=== PATIENT | female | born 1940 | race Caucasian/White ===

== ENCOUNTER 2017-12-07 07:11 | Day surgery (SDC) | payer MEDICARE, BC, SELFPAY ==
[2017-12-07 07:21] VITALS: BP 151/77; PULSE 85; RESP 15; TEMP 36; O2SAT 96; BMI 22.6
[2017-12-07] MEDS: SODIUM CHLORIDE 0.9% 1,000 ML 42 ML IV (07:35)
--- NOTE | 2017-12-07 09:07 | PM.HP.1 ---
History of Present Illness Date Patient Seen: 12/07/17 Time Patient Seen: 09:08 Chief complaint: [id number] Narrative: History of colon polyps Patient History Family & Social History Social History: household members spouse Meds Home Medications Medication Instructions Recorded Confirmed Type No Known Home Medications 12/07/17 12/07/17 History Allergies Allergy/AdvReac Type Severity Reaction Status Date / Time aspirin Allergy Verified 12/07/17 07:34 Exam Vital Signs (past 8 hours): - 12/07/17 07:21 Temperature 96.8 F L Pulse Rate 85 Respiratory Rate 15 Blood Pressure 151/77 H Pulse Oximetry 96 Oxygen Delivery Method Room Air Narrative Exam Narrative: Chest clear to auscultation percussion Cardiac exam reveals no S3 or murmur Oropharynx free of lesions Assessment & Plan Plan: Assessment/Plan Narrative: Assessment History of colon polyps Plan Colonoscopy
--- NOTE | 2017-12-07 09:10 | P.HP_ITS ---
History of Present Illness Date Patient Seen: 12/07/17 Time Patient Seen: 09:08 Chief complaint: [id number] Narrative: History of colon polyps Patient History Family & Social History Social History: household members spouse Meds Home Medications Medication Instructions Recorded Confirmed Type No Known Home Medications 12/07/17 12/07/17 History Allergies Allergy/AdvReac Type Severity Reaction Status Date / Time aspirin Allergy Verified 12/07/17 07:34 Exam Vital Signs (past 8 hours): - 12/07/17 07:21 Temperature 96.8 F L Pulse Rate 85 Respiratory Rate 15 Blood Pressure 151/77 H Pulse Oximetry 96 Oxygen Delivery Method Room Air Narrative Exam Narrative: Chest clear to auscultation percussion Cardiac exam reveals no S3 or murmur Oropharynx free of lesions Assessment & Plan Plan: Assessment/Plan Narrative: Assessment History of colon polyps Plan Colonoscopy
--- NOTE | 2017-12-07 09:10 | PM.OP.ENDO ---
Operative Date/Time/Diagnoses Date of procedure: 12/07/17 Time of procedure: 09:10 Pre-op diagnosis: History of colon polyps Post-op diagnosis: same Procedure & Clinicians Study performed: Colonoscopy Same procedure as scheduled: Yes Indications: History of colon polyps Surgeon: Saray Robbins Procedure Notes Procedure in detail: After informed consent was obtained the patient was placed in left lateral decubitus position. The video colonoscope was introduced through the rectum and slowly advanced to the cecum. Preparation was excellent. On slow withdrawal mucosa was carefully examined. Scope was removed patient tolerated procedure well Blood loss none Complications none Medications Fentanyl 100 mcg Versed 4 mg IV titration Total sedation time 21 min Findings 1. 5 mm polyp in the mid-ascending colon Jumbo biopsy removed. Somehow specimen lost within the channel of the endoscope 2. For 3-4 mm polyp seen in the rectum. All were Jumbo biopsied and removed completely. Plan is to follow up on colon polyps pathology. This is very likely her last colonoscopy however. In excellent health and all the polyps are adenomatous might consider repeat colonoscopy in 5 years.
[2017-12-07 09:11] VITALS: BP 112/68; PULSE 62; RESP 16; TEMP 36.5; O2SAT 96
[2017-12-07] MEDS: MIDAZOLAM 5 MG/5 ML VIAL IV (09:13)
[2017-12-07] MEDS: fentaNYL 250 MCG/5 ML INJ IV (09:14)
[2017-12-07 09:17] VITALS: BP 117/54; PULSE 73; RESP 16; O2SAT 97
[2017-12-07 09:21] VITALS: BP 119/74; PULSE 68; RESP 16; O2SAT 96
[2017-12-07 09:29] VITALS: BP 131/74; PULSE 75; TEMP 36.1; O2SAT 99
--- NOTE | 2017-12-14 | PATH_ITS ---
[facility] Accession Number: [id number] . 01 Material submitted: . RECTAL POLYPS . 01 Clinical history: . A: X2 . 02 Diagnosis: Rectum, Polyps x2, Biopsies: Hyperplastic polyps. V/12/08/2017 . 02 Electronically signed: . Sana Piña MD, Pathologist NPI- [id number] . 01 Gross description: . Received in one formalin-filled container labeled with the patient's name and labeled rectal polyps x4, are four less than 0.1 cm to 0.3 cm portions of tissue, entirely submitted in one cassette. ([id number]) /FRR . 02 Pathologist provided ICD-10: K62.1 . 02 CPT . 730931 Performed at: 01 [facility] [address] [place] [address], [place], [place] [id number] MD Severo Almonte MD Phone: [phone] Performed at: 02 [facility] [address] [place], [place] [id number] MD Guy Hameed MD Phone: [phone]
== END 2017-12-07 09:40 | disposition home or self-care (01) ==
PROVIDERS: Family Provider Family Medicine; PCP Family Medicine; Visit Provider Internal Medicine Gastroenterology
PROC: 0DJD8ZZ Inspection of Lower Intestinal Tract, Via Natural or Artificial Opening Endoscopic (ICD-10-PCS; CPT 45378; principal; 2017-12-07 08:30)
DX: Z86.010 Personal history of colon polyps (principal); D12.2 Benign neoplasm of ascending colon; K62.1 Rectal polyp
CPT/HCPCS: 45380; 88305; J2250; J3010

== ENCOUNTER 2018-10-10 07:28 | Day surgery (SDC) | payer MEDICARE, BC, SELFPAY ==
[2018-10-10 08:10] VITALS: BP 159/78; PULSE 75; RESP 16; TEMP 36.4; O2SAT 100; BMI 22.1
[2018-10-10] MEDS: PROPARACAINE 0.5% OPHTH SOL 2 DROPS EYE-OP (08:10)
[2018-10-10] MEDS: CATARACT EYE COMPOUND (10 DROPS/SYRINGE) 3 DROPS EYE-OP (08:15)
--- NOTE | 2018-10-10 09:13 | PM.PREOP ---
Pre-operative Note Interval Note History & Physical reviewed/Exam performed by Physician: No Changes to H&P: No
--- NOTE | 2018-10-10 09:14 | PM.OP.1 ---
Operative Date/Time/Diagnoses Pre-op diagnosis: Nuclear cataract right eye Procedure & Clinicians Procedure: Cataract Surgery Same procedure as scheduled: Yes Surgeon: Sergio Rodriges Anesthesia Type: MAC +/- and Sedation Operative Notes Procedure in detail: Patient brought to the operating suite. Tetracaine drops placed in the right eye. Patient was prepped and draped in sterile manner. Wire lid speculum was placed in the eye. Betadine drops were placed on the eye. This was irrigated. Lidocaine jelly was placed on the eye. A paracentesis port was created with a side-port blade. 0.1 mL 1% preservative free lidocaine was injected into the anterior chamber. The anterior chamber was deepened with viscoelastic. 2.6 mm keratome was used to create a temporal clear corneal incision. Cystotome and Utrata forceps were used to create continuous tear capsulorrhexis. Balanced salt solution was used to hydro dissect the nucleus. The phacoemulsification handpiece was inserted and the nucleus was removed using the stop and chop technique. The irrigation aspiration handpiece was inserted and the remaining cortex was removed. Anterior chamber was deepened with viscoelastic. An Galicia ZCB00 intraocular lens with a power of 22.5 was injected into the capsular bag. Irrigation aspiration handpiece was inserted and the remaining viscoelastic was removed. Incision was hydrated with balanced salt solution and found to be leak free with pressure with Weck-Chanel sponges. 0.1 mL Vigamox injected anterior chamber. 0.3 mL Kenalog 10 mg was injected subconjunctivally. Lid speculum was removed. The patient left the operating room in excellent condition. Complications: none Condition: stable Disposition: same day surgery
[2018-10-10] MEDS: MOXIFLOXACIN OPHTH DROPS 3 ML BOTTLE 2 DROPS INJ (09:33)
[2018-10-10] MEDS: TRIAMCINOLONE 50 MG/5 ML VIAL INJ (09:33)
[2018-10-10] MEDS: PHENYLEPHRINE/LIDOCAINE VIAL (OR) 0.2 ML EYE-OP (09:33)
[2018-10-10] MEDS: CHONDROIDTIN/SOD HYALURONATE 1.05 ML SYRINGE INTRAOCULA (09:34)
[2018-10-10] MEDS: BALANCED SALT IRRIG SOLN NO.2 500 ML, EPINEPHrine 1 MG IRR (09:34)
[2018-10-10] MEDS: LIDOCAINE JELLY 2% 5 ML 1 APPLIC TOP (09:34)
[2018-10-10] MEDS: TETRACAINE 0.5% OPHTH DROPS 4 ML 2 DROPS EYE-OP (09:34)
[2018-10-10 09:47] VITALS: BP 118/78; PULSE 72; RESP 16; TEMP 36.2; O2SAT 98
== END 2018-10-10 10:05 ==
PROVIDERS: Family Provider Family Medicine; PCP Family Medicine; Visit Provider Ophthalmology
PROC: (CPT 66984; principal; 2018-10-10 09:15)
DX: H25.11 Age-related nuclear cataract, right eye (principal)
CPT/HCPCS: 66984; J0171; J2250; J3010; J3301

== ENCOUNTER 2018-10-24 07:02 | Day surgery (SDC) | payer MEDICARE, BC, SELFPAY ==
[2018-10-24 07:15] VITALS: BP 167/83; PULSE 67; RESP 16; TEMP 36.5; O2SAT 100
[2018-10-24 07:24] VITALS: BMI 21.7
[2018-10-24] MEDS: PROPARACAINE 0.5% OPHTH SOL 2 DROPS EYE-OP (07:27)
[2018-10-24] MEDS: CATARACT EYE COMPOUND (10 DROPS/SYRINGE) 3 DROPS EYE-OP (07:33)
--- NOTE | 2018-10-24 08:08 | PM.PREOP ---
Pre-operative Note Interval Note History & Physical reviewed/Exam performed by Physician: No Changes to H&P: No
--- NOTE | 2018-10-24 08:08 | PM.OP.1 ---
Operative Date/Time/Diagnoses Pre-op diagnosis: Nuclear Cataract Left eye Post-op diagnosis: same Procedure & Clinicians Surgeon: Sergio Rodriges Anesthesia Type: MAC +/- and Sedation Operative Notes Procedure in detail: Patient brought to the operating suite. Tetracaine drops placed in the left eye. Patient was prepped and draped in sterile manner. Wire lid speculum was placed in the eye. Betadine drops were placed on the eye. This was irrigated. Lidocaine jelly was placed on the eye. A paracentesis port was created with a side-port blade. 0.1 mL 1% preservative free lidocaine was injected into the anterior chamber. The anterior chamber was deepened with viscoelastic. 2.6 mm keratome was used to create a temporal clear corneal incision. Cystotome and Utrata forceps were used to create continuous tear capsulorrhexis. Balanced salt solution was used to hydro dissect the nucleus. The phacoemulsification handpiece was inserted and the nucleus was removed using the stop and chop technique. The irrigation aspiration handpiece was inserted and the remaining cortex was removed. Anterior chamber was deepened with viscoelastic. An Galicia ZCB00 intraocular lens with a power of 22.5 was injected into the capsular bag. Irrigation aspiration handpiece was inserted and the remaining viscoelastic was removed. Incision was hydrated with balanced salt solution and found to be leak free with pressure with Weck-Chanel sponges. 0.1 mL Vigamox injected anterior chamber. 0.3 mL Kenalog 10 mg was injected subconjunctivally. Lid speculum was removed. The patient left the operating room in excellent condition. Complications: none Condition: stable Disposition: same day surgery
[2018-10-24] MEDS: MOXIFLOXACIN OPHTH DROPS 3 ML BOTTLE 2 DROPS INJ (08:22)
[2018-10-24] MEDS: TRIAMCINOLONE 50 MG/5 ML VIAL INJ (08:22)
[2018-10-24] MEDS: PHENYLEPHRINE/LIDOCAINE VIAL (OR) 0.2 ML EYE-OP (08:22)
[2018-10-24] MEDS: TETRACAINE 0.5% OPHTH DROPS 4 ML 2 DROPS EYE-OP (08:23)
[2018-10-24] MEDS: LIDOCAINE JELLY 2% 5 ML 1 APPLIC TOP (08:23)
[2018-10-24] MEDS: CHONDROIDTIN/SOD HYALURONATE 1.05 ML SYRINGE INTRAOCULA (08:23)
[2018-10-24] MEDS: BALANCED SALT IRRIG SOLN NO.2 500 ML, EPINEPHrine 1 MG IRR (08:23)
[2018-10-24 08:38] VITALS: BP 124/94; PULSE 88; RESP 15; TEMP 36.4; O2SAT 96
[2018-10-24 08:56] VITALS: BP 123/68; PULSE 63; RESP 15; TEMP 36.6; O2SAT 98
== END 2018-10-24 09:04 ==
LOC: OR 07:04
PROVIDERS: Family Provider Family Medicine; PCP Family Medicine; Visit Provider Ophthalmology
PROC: (CPT 66984; principal; 2018-10-24 08:15)
DX: H25.12 Age-related nuclear cataract, left eye (principal)
CPT/HCPCS: 66984; J0171; J2250; J3010; J3301

== ENCOUNTER → 2018-11-08 10:11 | Outpatient (CLI) | payer MEDICARE, BC, SELFPAY | PROVIDERS: PCP Family Medicine; Visit Provider Family Medicine | DX: M81.0 Age-related osteoporosis without current pathological fracture (principal); Z78.0 Asymptomatic menopausal state | CPT/HCPCS: 77080 ==

== ENCOUNTER → 2019-07-26 15:20 | Outpatient (CLI) | payer MEDICARE, BC, SELFPAY ==
--- NOTE | 2019-07-26 | DI.MG.S_ITS ---
BILATERAL DIGITAL SCREENING MAMMOGRAM 3D/2D WITH CAD: 07/26/2019 CLINICAL: Routine screening. Comparison is made to exams dated: 08/08/2017 mammogram, 04/14/2016 mammogram, 03/26/2016 mammogram, and 03/24/2015 mammogram - [facility]. The tissue of both breasts is extremely dense, which lowers the sensitivity of mammography. Current study was also evaluated with a Computer Aided Detection (CAD) system. There is an oval equal density asymmetry with an obscured margin in the right breast posterior depth lateral region seen on the craniocaudal view only. Finding is seen only on tomography. No other significant masses, calcifications, or other findings are seen in either breast. IMPRESSION: INCOMPLETE: NEEDS ADDITIONAL IMAGING EVALUATION The oval equal density asymmetry in the right breast is indeterminate. Additional views with possible ultrasound are recommended. This exam was interpreted at Station ID: [id number]. NOTE: For mammograms, a report in lay terms will be sent to the patient. Approximately 15% of breast malignancies will not be visualized mammographically. In the management of a palpable breast mass, a negative mammogram must not discourage biopsy of a clinically suspicious lesion. Electronically Signed By: Cassandra buckner/abad:07/26/2019 20:49:44 letter sent: Additional Imaging Needed ACR BI-RADS Category 0: Incomplete 3340F
== END ==
PROVIDERS: PCP Family Medicine; Referring Provider Family Medicine; Visit Provider Family Medicine
DX: Z12.31 Encounter for screening mammogram for malignant neoplasm of breast (principal)
CPT/HCPCS: 77063; 77067

== ENCOUNTER → 2019-08-07 12:36 | Outpatient (CLI) | payer MEDICARE, BC, SELFPAY ==
--- NOTE | 2019-08-07 | DI.MG.S_ITS ---
UNILATERAL RIGHT DIGITAL DIAGNOSTIC MAMMOGRAM 3D/2D WITH ADDITIONAL VIEWS: 08/07/2019 CLINICAL: Additional evaluation requested from prior study. Comparison is made to exams dated: 07/26/2019 mammogram, 08/08/2017 mammogram, 04/14/2016 mammogram, and 03/26/2016 mammogram - [facility]. The tissue of right breast is extremely dense, which lowers the sensitivity of mammography. The oval asymmetry with indistinct margins in the right breast posterior depth lateral region seen on the craniocaudal view only is not seen on additional views. No other significant masses or calcifications are seen in the breast. IMPRESSION: There is no mammographic evidence of malignancy. A 1 year screening mammogram is recommended. This exam was interpreted at Station ID: [id number]. NOTE: For mammograms, a report in lay terms will be sent to the patient. Approximately 15% of breast malignancies will not be visualized mammographically. In the management of a palpable breast mass, a negative mammogram must not discourage biopsy of a clinically suspicious lesion. Electronically Signed By: Severo greer/:08/07/2019 13:06:01 letter sent: Normal Exam ACR BI-RADS Category 2: Benign Finding(s) 3342F
== END ==
PROVIDERS: PCP Family Medicine; Referring Provider Family Medicine; Visit Provider Family Medicine
DX: R92.8 Other abnormal and inconclusive findings on diagnostic imaging of breast (principal)
CPT/HCPCS: 77065; G0279

== ENCOUNTER → 2020-11-10 10:08 | Outpatient (CLI) | payer MEDICARE, BC, SELFPAY | PROVIDERS: PCP Family Medicine; Referring Provider Family Medicine; Visit Provider Family Medicine | DX: M81.0 Age-related osteoporosis without current pathological fracture (principal); Z78.0 Asymptomatic menopausal state | CPT/HCPCS: 77080 ==

== ENCOUNTER → 2020-12-31 14:43 | Outpatient (CLI) | payer MEDICARE, BC, SELFPAY ==
--- NOTE | 2020-12-31 | DI.MG.S_ITS ---
BILATERAL DIGITAL SCREENING MAMMOGRAM 3D/2D WITH CAD: 12/31/2020 CLINICAL: Routine screening. Comparison is made to exams dated: 08/07/2019 mammogram, 07/26/2019 mammogram, 08/08/2017 mammogram, and 04/14/2016 mammogram - [facility]. The tissue of both breasts is extremely dense, which lowers the sensitivity of mammography. Current study was also evaluated with a Computer Aided Detection (CAD) system. No significant masses, calcifications, or other findings are seen in either breast. There has been no significant interval change. IMPRESSION: NEGATIVE There is no mammographic evidence of malignancy. A 1 year screening mammogram is recommended. This exam was interpreted at Station ID: [id number]. NOTE: For mammograms, a report in lay terms will be sent to the patient. Approximately 15% of breast malignancies will not be visualized mammographically. In the management of a palpable breast mass, a negative mammogram must not discourage biopsy of a clinically suspicious lesion. Electronically Signed By: Abel stinson/abad:12/31/2020 15:27:24 letter sent: Normal Exam ACR BI-RADS Category 1: Negative 3341F
== END ==
PROVIDERS: PCP Family Medicine; Referring Provider Family Medicine; Visit Provider Family Medicine
DX: Z12.31 Encounter for screening mammogram for malignant neoplasm of breast (principal)
CPT/HCPCS: 77063; 77067

== ENCOUNTER → 2021-06-01 14:07 | Outpatient (CLI) | payer MEDICARE, BC, SELFPAY ==
--- NOTE | 2021-06-01 | DI.MRI.S_ITS ---
PROCEDURE: MR HEAD/BRAIN WO/W CON INDICATIONS: Unspecified chorioretinal inflammation, unspecifie TECHNIQUE: Noncontrast axial T1 spin echo, axial T2 fast spin echo, sagittal and axial FLAIR, coronal T2 fast spin echo, axial gradient echo, axial diffusion and ADC through the brain. After the administration of contrast, axial and coronal T1 spin echo with fat saturation through the brain. COMPARISON: None. FINDINGS: Image quality: Excellent. CSF spaces: Basal cisterns are patent. No extra-axial fluid collections. Ventricles are normal in size and shape. Brain: No midline shift. No intracranial bleeds or masses. No abnormal intracranial enhancement. There is cerebral volume loss for age. There is periventricular white matter chronic small vessel ischemic change. The brainstem appears normal. Diffusion-weighted images demonstrate no acute ischemic insults. No chronic ischemic insults. Normal intravascular flow voids are present. Skull and face: Calvarial marrow is normal in signal. Orbits appear normal. Sinuses: Sinuses demonstrate minimal pansinus mucosal thickening. IMPRESSION: 1. No acute intracranial process. 2. Orbits are within normal limits. Dictated by: Shania Hooper M.D. on 06/01/2021 at 15:31 Approved by: Shania Hooper M.D. on 06/01/2021 at 15:37
== END ==
PROVIDERS: PCP Family Medicine; Referring Provider Family Medicine; Visit Provider Family Medicine
DX: H30.90 Unspecified chorioretinal inflammation, unspecified eye (principal); H35.81 Retinal edema; B02.39 Other herpes zoster eye disease
CPT/HCPCS: 70553; A9579

== ENCOUNTER → 2021-06-11 08:36 | Outpatient (CLI) | payer MEDICARE, BC, SELFPAY ==
[2021-06-11 10:00] LABS: Add Manual Diff / Slide Review NO; Basophils Absolute Auto 0 /uL (0-100); Basophils Percent Auto 0.4 % (0-2); Eosinophils Absolute Auto 100 /uL (0-450); Eosinophils Percent Auto 2.7 % (2-4); Hematocrit 41.4 % (36-46); Hemoglobin 14.2 g/dL (12.0-16.0); Lymphocytes Absolute Auto 1500 /uL (1100-4500); Lymphocytes Percent Auto 31.4 % (25-40); Mean Corpuscular HGB Conc 34.3 % (30-36); Mean Corpuscular Hemoglobin 28.1 PG (26-34); Mean Corpuscular Volume 82.1 fL (80-100); Monocytes Absolute Auto 500 /uL (0-900); Neutrophils Absolute Auto 2700 /uL (1500-7000); Neutrophils Percent Auto 54.5 % (50-75); Platelet Count 188 X10^3/uL (150-400); Red Blood Cell Count 5.04 X10^6/uL (4.0-5.2); White Blood Cell Count 4.9 X10^3/uL (4.5-11.0)
[2021-06-11 10:18] LABS: Cholesterol 200 mg/dL (140-199); HDL Cholesterol 51 mg/dL (40-60); LDL Cholesterol Calculated 130 mg/dL (<100); Triglycerides 96 mg/dL (35-150)
[2021-06-11 10:21] LABS: Hemoglobin A1C% w Est Avg Glu 5.5 % (4.0-6.0)
[2021-06-11 11:09] LABS: Thyroid Stimulating Hormone 3.14 uIU/mL (0.47-4.68)
== END ==
PROVIDERS: PCP Family Medicine; Referring Provider Family Medicine; Visit Provider Family Medicine
DX: R73.9 Hyperglycemia, unspecified (principal); E78.5 Hyperlipidemia, unspecified
CPT/HCPCS: 36415; 80061; 83036; 84443; 85025

== ENCOUNTER → 2021-09-18 09:45 | Outpatient (CLI) | payer MEDICARE, BC, SELFPAY ==
[2021-09-18 11:56] LABS: COVID-19 CEPHEID PCR (VTM/NP) Negative (Negative)
== END ==
PROVIDERS: PCP Family Medicine; Visit Provider Family Medicine Sleep Medicine
DX: Z20.822 Contact with and (suspected) exposure to COVID-19 (principal)
CPT/HCPCS: C9803; U0003; U0005

== ENCOUNTER → 2022-02-16 09:14 | Outpatient (CLI) | payer MEDICARE, BC, SELFPAY ==
--- NOTE | 2022-02-16 | DI.MG.S_ITS ---
BILATERAL DIGITAL SCREENING MAMMOGRAM 3D/2D WITH CAD: 02/16/2022 CLINICAL: Routine screening. Comparison is made to exams dated: 12/31/2020 mammogram, 07/26/2019 mammogram, and 08/08/2017 mammogram - [facility]. Both breasts are heterogeneously dense, which may obscure small masses (category c / 51-75% glandular tissue). Current study was also evaluated with a Computer Aided Detection (CAD) system. No significant masses, calcifications, or other findings are seen in either breast. There has been no significant interval change. IMPRESSION: NEGATIVE There is no mammographic evidence of malignancy. A 1 year screening mammogram is recommended. Based on the Tyrer Cuzick model (a risk assessment model) the patient's lifetime risk is 1.0% and her 10 year risk is 0.0%. According to the ACR, ACS, and NCCN guidelines, an annual breast MRI exam along with mammogram is recommended if the patient's lifetime risk is 20% or greater. This exam was interpreted at Station ID: [id number]. NOTE: For mammograms, a report in lay terms will be sent to the patient. Approximately 15% of breast malignancies will not be visualized mammographically. In the management of a palpable breast mass, a negative mammogram must not discourage biopsy of a clinically suspicious lesion. Electronically Signed By: Adalberto marley/abad:02/16/2022 11:48:14 letter sent: Normal Exam ACR BI-RADS Category 1: Negative 3341F
== END ==
PROVIDERS: PCP Family Medicine; Referring Provider Family Medicine; Visit Provider Family Medicine
DX: Z12.31 Encounter for screening mammogram for malignant neoplasm of breast (principal)
CPT/HCPCS: 77063; 77067